=== PATIENT | female | born 1990 | race Caucasian/White ===

== ENCOUNTER 2019-05-05 01:11 | Emergency (ER) | payer OTHER ==
[~2019-05-05] VITALS: Ht 154.9 cm; Wt 40.8 kg
[2019-05-05 02:00] LABS: HEMATOCRIT 36 % (35-52); HEMOGLOBIN 11.8 G/DL (11.5-16.0); MEAN CORPUSCULAR HEMOGLOBIN 29 PG (25-34); MEAN CORPUSCULAR HGB CONC 33 G/DL (32-36); MEAN CORPUSCULAR VOLUME 89 FL (80-99); MEAN PLATELET VOLUME 10.9 FL (7.4-10.4); PLATELET COUNT 260 10^3/uL (130-400); RED CELL DISTRIBUTION WIDTH 12.9 % (10.0-14.5); WHITE BLOOD COUNT 8.5 10^3/uL (4.3-11.0)
[2019-05-05 02:01] LABS: BASOPHILS % (AUTO) 1 % (0-10); EOSINOPHILS # (AUTO) 0.2 10^3/uL (0.0-0.3); EOSINOPHILS % (AUTO) 3 % (0-10); LYMPHOCYTES # (AUTO) 2.2 X 10^3 (1.0-4.0); LYMPHOCYTES % (AUTO) 26 % (12-44); MONOCYTES # (AUTO) 0.8 X 10^3 (0.0-1.0); MONOCYTES % (AUTO) 9 % (0-12); NEUTROPHILS # (AUTO) 5.2 X 10^3 (1.8-7.8); NEUTROPHILS % (AUTO) 61 % (42-75)
--- NOTE | 2019-05-05 02:01 | ED Cardiac General ---
History of Present Illness General Chief Complaint: Cardiac/General Problems Stated Complaint: SOB, HEART PALPITATIONS, CHEST DISCOMFORT Nursing Triage Note: PT. STATED SHE HAS BEEN HAVING PALIPITATIONS, AND SOB SINCE 1800 YESTERDAY. PT. REPORTED SHE HAS BEEN HAVING MORE PALIPITATIONS OFF AND ON FOR 10 YEARS BUT THEY WOULD GO AWAY ONLY LASTING 30 SEC. OR SO. TONIGHT SHE FELT LIKE THE PALIPITATIONS WOULD NOT GO AWAY THIS TIME. SHE SAID SHE IS NOT HAVING ANY PAIN AT THIS TIME. SHE IS NO LONGER SOB. PT. WAS PLACED ON THE MONITOR AND SHOWING SINUS RHYTHM AT A RATE 86 THEN JUST BEFORE THE EKG WAS DONE THE HEART RATE WENT UP TO 126-140 THEN CAME BACK DOWN TO 80. NO PAIN OR SOB AT THAT TIME. Source: patient, other (friends) Exam Limitations: no limitations History of Present Illness Date Seen by Provider: May 05, 2019 Time Seen by Provider: 01:47 Initial Comments Patient presents to ER by private conveyance with chief complaint of chest discomfort feeling weird, palpitations racing heart rate and she said she checked it and got up to the 140s. She says is not irregular. She's had this for years but here lately in the last week or 2 it's gotten much more frequent and intense. She brought it up to her GP in the past and he had done a little workup but not sent her anywhere. He did find that her thyroid was off and they got it under control with methimazole. She said a few years ago it was off-again suppressed so they started her on Synthroid which caused her heart to race constantly. She avoids caffeine except for one cup of referral grade T in the evening. She does drink green tea throughout the day. She does have a history of anxiety but does not take anything specifically for it. She says she can tell the difference between her anxiety and her heart racing though she does not feel anxious tonight. She has no personal or familial history of early-onset coronary artery disease. No hypertension, cholesterol or diabetes. She is visiting her friends she caught and does not have a local physician and only plans to be here for another 4 days. Her symptoms of been going on all day. No recent illness or fever chills nausea vomiting diarrhea or feeling of dehydration. She also gives a history that sometimes when her heart rate will race high she can do some coughing maneuvers or Valsalva maneuvers which will bring her heart rate back down. Allergies and Home Medications Allergies Coded Allergies: No Known Drug Allergies (Unverified , 05/05/19) Patient Home Medication List Home Medication List Reviewed: Yes Review of Systems Review of Systems Constitutional: No chills, No dizziness, No fever EENTM: No Blurred Vision, No Double Vision Respiratory: Denies Cough, Denies Shortness of Air Cardiovascular: See HPI; Denies Chest Pain, Denies Edema, Denies Irregular Heart Rate; Lightheadedness, Palpitations Gastrointestinal: See HPI; Denies Abdominal Pain, Denies Constipated, Denies Diarrhea, Denies Nausea Genitourinary: Denies Burning, Denies Discharge Musculoskeletal: No back pain, No joint pain Psychiatric/Neurological: Anxiety; Denies Depressed Endocrine: Denies Excessive Sweating, Denies Flushing, Denies Intolerance to Cold, Denies Intolerance to Heat Past Swofqcj-Ewpvgb-Oceahf Hx Patient Social History Alcohol Use: Denies Use Recreational Drug Use: No Smoking Status: Never a Smoker Recent Foreign Travel: No Contact w/Someone Who Travel: No Recent Infectious Disease Expo: No Physical Abuse: No Sexual Abuse: No Mistreated: No Fear: No Physical Exam Vital Signs Vital Signs - First Documented 05/05/19 01:27 Temp 97.2 Pulse 86 Resp 16 B/P (MAP) 116/79 (91) Pulse Ox 98 O2 Delivery Room Air Capillary Refill : Less Than 3 Seconds Height, Weight, BMI Height: 5'1.00" Weight: 90lbs. oz. [id number]; BMI Method:Stated General Appearance: No Apparent Distress; No Anxious; Thin HEENT: PERRL/EOMI, Normal ENT Inspection, Pharynx Normal, Moist Mucous Membranes Neck: Full Range of Motion, Normal Inspection Respiratory: Chest Non Tender, Lungs Clear, Normal Breath Sounds, No Accessory Muscle Use, No Respiratory Distress Cardiovascular: Regular Rate, Rhythm, No Edema, Normal Peripheral Pulses Gastrointestinal: Normal Bowel Sounds, Non Tender, Soft Extremity: Normal Capillary Refill, Normal Inspection, No Pedal Edema Neurologic/Psychiatric: Alert, Oriented x3 Skin: Normal Color, Warm/Dry Progress/Results/Core Measures Results/Orders Lab Results Laboratory Tests Test 05/05/19 01:27 Range/Units White Blood Count 8.5 4.3-11.0 10^3/uL Red Blood Count 4.08 L 4.35-5.85 10^6/uL Hemoglobin 11.8 11.5-16.0 G/DL Hematocrit 36 35-52 % Mean Corpuscular Volume 89 80-99 FL Mean Corpuscular Hemoglobin 29 25-34 PG Mean Corpuscular Hemoglobin Concent 33 32-36 G/DL Red Cell Distribution Width 12.9 10.0-14.5 % Platelet Count 260 130-400 10^3/uL Mean Platelet Volume 10.9 H 7.4-10.4 FL Neutrophils (%) (Auto) 61 42-75 % Lymphocytes (%) (Auto) 26 12-44 % Monocytes (%) (Auto) 9 0-12 % Eosinophils (%) (Auto) 3 0-10 % Basophils (%) (Auto) 1 0-10 % Neutrophils # (Auto) 5.2 1.8-7.8 X 10^3 Lymphocytes # (Auto) 2.2 1.0-4.0 X 10^3 Monocytes # (Auto) 0.8 0.0-1.0 X 10^3 Eosinophils # (Auto) 0.2 0.0-0.3 10^3/uL Basophils # (Auto) 0.0 0.0-0.1 10^3/uL Sodium Level 139 135-145 MMOL/L Potassium Level 3.3 L 3.6-5.0 MMOL/L Chloride Level 100 98-107 MMOL/L Carbon Dioxide Level 24 21-32 MMOL/L Anion Gap 15 H 5-14 MMOL/L Blood Urea Nitrogen 11 7-18 MG/DL Creatinine 0.71 0.60-1.30 MG/DL Estimat Glomerular Filtration Rate > 60 BUN/Creatinine Ratio 15 Glucose Level 96 70-105 MG/DL Calcium Level 9.3 8.5-10.1 MG/DL Corrected Calcium 8.5-10.1 MG/DL Total Bilirubin 0.2 0.1-1.0 MG/DL Aspartate Amino Transf (AST/SGOT) 13 5-34 U/L Alanine Aminotransferase (ALT/SGPT) 14 0-55 U/L Alkaline Phosphatase 58 40-136 U/L Troponin I < 0.30 <0.30 NG/ML Pro-B-Type Natriuretic Peptide 43.5 <75.0 PG/ML Total Protein 7.9 6.4-8.2 GM/DL Albumin 4.8 H 3.2-4.5 GM/DL Serum Test, Qualitative NEGATIVE NEGATIVE My Orders Orders - HOMEROAYAN Dang Ekg Tracing (05/05/19 01:29) Continuous Ekg Monitoring (05/05/19 01:29) Chest 1 View Ap/Pa Only (05/05/19 01:29) Cbc With Automated Diff (05/05/19 01:29) Comprehensive Metabolic Panel (05/05/19 01:29) Troponin I (05/05/19 01:29) Iv Heplock-Insert (Order) (05/05/19 01:32) Hcg,Qualitative Serum (05/05/19 01:35) Orthostatic Vital Signs (Adult (05/05/19 01:55) Probnp Fs (05/05/19 02:03) Vital Signs/I&O 05/05/19 05/05/19 01:27 02:13 Temp 97.2 Pulse 86 80 99 104 Resp 16 B/P (MAP) 116/79 (91) 107/68 (81) 107/72 (84) 112/72 (85) Pulse Ox 98 O2 Delivery Room Air Blood Pressure Mean: 91 Progress Progress Note #1: Time: 01:59 Progress Note EKG is unremarkable. We have kept her on the monitor and occasionally her heart rate we'll shoot up to around 120 for about 10-15 seconds always sinus tachycardia. It's possible she could have some kind of a ectopic dysrhythmia. She does not seem to have full Parkinson's White or any other reentrant alexander tachycardia noted on the EKG. Rest her vitals are normal. We will check some basic labs to rule out obvious infection. We do not have a TSH we can obtain tonight and this ER. We have encouraged her to get that at her primary care doctor as well as pursue a cardiac workup with a package crimper. We will obtain orthostatic vital signs and think about postural orthostatic tachycardic syndrome. Cardiac exam otherwise is unremarkable. We may try a challenge of IV fluids to see if that improves her symptoms if she has some kind of passive dehydration related to being in [place] for the past week when her symptoms started to get worse. Her lightheadedness is described as near syncope so we'll get a troponin and BNP. Progress Note #2: Time: 03:01 Progress Note Vital signs of been okay on the monitor. Her orthostatic vital signs were unremarkable. Her potassium was a hair on the low side so we'll give her a singl e dose of oral potassium. We'll encourage some potassium laden foods. Addison syncope risk score negative to points. Very low risk. 0.7% risk of 30- day serious adverse event Initial ECG Impression Date: May 05, 2019 Initial ECG Impression Time: 01:20 Initial ECG Rate: 90 Initial ECG Rhythm: Normal Sinus Initial ECG Intervals: Normal Initial ECG Impression: Normal Initial ECG Comparisson: No Previous ECG Available Comment Normal sinus rhythm. Diagnostic Imaging Diagonstic Imaging: Xray Plain Films/CT/US/NM/MRI: chest (1v) Comments No cardiomegaly or acute cardiopulmonary process. Reviewed: Reviewed by Me Departure Impression Primary Impression: Paroxysmal sinus tachycardia Disposition: 01 HOME, SELF-CARE Condition: Stable Departure-Patient Inst. Decision time for Depature: 03:04 Referrals: Angel HARRELL MD Patient Instructions: Sinus Tachycardia (DC) Add. Discharge Instructions: Avoid stimulants such as caffeine. Get plenty of sleep and drink plenty of fluids. Eat foods rich in potassium such as bananas or sports drinks. Plan to follow up with your primary care for further management. We have given you referral to local package crimper but if you choose to see a package crimper closer to home that would be very reasonable within the next month or 2. All discharge instructions reviewed with patient and/or family. Voiced understanding. AYAN VALENTIN May 05, 2019 02:01
[2019-05-05 02:13] VITALS: BP_SYST 107; BP_SYST 112; BP_DIAS 68; BP_DIAS 72
[2019-05-05 02:52] LABS: ALANINE AMINOTRANSFERASE 14 U/L (0-55); ALKALINE PHOSPHATASE 58 U/L (40-136); BILIRUBIN,TOTAL 0.2 MG/DL (0.1-1.0); BUN/CREATININE RATIO 15; CALCIUM 9.3 MG/DL (8.5-10.1); CARBON DIOXIDE 24 MMOL/L (21-32); CHLORIDE 100 MMOL/L (98-107); CREATININE SERUM 0.71 MG/DL (0.60-1.30); GFR ESTIMATED > 60; GLUCOSE 96 MG/DL (70-105); POTASSIUM 3.3 MMOL/L (3.6-5.0); SODIUM 139 MMOL/L (135-145)
[2019-05-05 02:53] LABS: ALBUMIN 4.8 GM/DL (3.2-4.5); TOTAL PROTEIN 7.9 GM/DL (6.4-8.2)
[2019-05-05] MEDS ORDERED: KCL 20 MEQ TAB (K-DUR) PO ONE (03:00)
[2019-05-05 03:13] VITALS: BP 107/68
--- NOTE | 2019-05-05 07:09 | Diagnostic Imaging Report ---
INDICATION: Cardiac palpitation. COMPARISON: No previous study is available for comparison at this time. FINDINGS: Heart size and pulmonary vasculature are within normal limits and the lungs are clear, bilaterally. There is mild right convexity curvature of the spine centered at the thoracolumbar junction. IMPRESSION: Unremarkable chest. Dictated by: Dictated on workstation # [id number]
== END 2019-05-05 03:15 | disposition home or self-care (01) ==
LOC: ER FS 01:13
DX: I47.1 Supraventricular tachycardia (principal); E07.9 Disorder of thyroid, unspecified; F41.9 Anxiety disorder, unspecified
CPT/HCPCS: 36415; 71045; 80053; 83880; 84484; 84703; 85025; 93005